=== PATIENT | female | born 1960 | race Caucasian/White ===

== ENCOUNTER 2017-09-20 12:07 | Emergency (ER) | payer OTHER ==
[2017-09-20] MEDS ORDERED: ONDANSETRON 4 MG/2 ML VIAL IVP STA (13:24)
[2017-09-20] MEDS ORDERED: SODIUM CHLORIDE 0.9% 1,000 ML IV ONE (13:24)
--- NOTE | 2017-09-20 13:29 | ED Physician Documentation ---
History of Present Illness - Stated complaint Stated Complaint: GLF/HEAD INJ - Chief complaint Chief Complaint: Trauma Hd/Nk - History obtained from History obtained from: Patient, Family - History of Present Illness Timing: Last night Pain level max: 5 Pain level now: 4 Improved by: rest Worsened by: nothing - Additonal information Additional information: Patient is a 57-year-old female who drank approximately 4 glasses of wine last night before bed, woke up at 2 AM to go to the bathroom, felt lightheaded and dizzy when sitting up off the toilet, passed out and her found her unconscious on the floor. She was unconscious for approximately 1 minute. No seizure activity. Today she has had vomiting and headache. She is also complaining of tailbone pain. Worse with walking. Better with rest. States that that is normally more wine than she drinks in one night. Review of Systems Ten Systems: 10 systems reviewed and negative Constitutional: denies: Fever, Chills Ears: denies: Ear pain Nose: denies: Rhinorrhea / runny nose, Congestion Throat: denies: Sore throat Cardiac: denies: Chest pain / pressure Respiratory: denies: Cough GI: denies: Nausea, Vomiting, Diarrhea Skin: denies: Rash Musculoskeletal: denies: Neck pain, Back pain Neurologic: denies: Headache PD PAST MEDICAL HISTORY - Past Medical History Past Medical History: Yes Cardiovascular: Hypertension Musculoskeletal: Other (R knee problems) - Present Medications Home Medications: Ambulatory Orders Medication Instructions Recorded Confirmed Doxycycline Monohydrate [Oracea] 09/20/17 Ondansetron Odt [Zofran] 4 mg TL Q6H PRN #10 tablet 09/20/17 Spironolactone 09/20/17 Valacyclovir HCl [Valtrex] 500 09/20/17 - Allergies Allergies/Adverse Reactions: Allergies Allergy/AdvReac Type Severity Reaction Status Date / Time Sulfa (Sulfonamide AdvReac Nausea Verified 09/20/17 12:25 Antibiotics) - Living Situation Living Situation: reports: With family Living Arrangement: reports: At home - Social History Does the pt smoke?: No Does the pt drink ETOH?: Yes Does the pt have substance abuse?: No - Family History Family history: reports: Non contributory PD ED PE NORMAL - Vitals Vital signs reviewed: Yes - General General: Alert and oriented X 3, No acute distress, Well developed/nourished - HEENT HEENT: PERRL, Ears normal, Moist mucous membranes, Pharynx benign, Other (mild occipital tenderness, no scalp hematoma) - Neck Neck: Supple, no meningeal sign, No bony TTP, Other (FROM without pain) - Cardiac Cardiac: RRR, Strong equal pulses - Respiratory Respiratory: No respiratory distress, Clear bilaterally - Abdomen Abdomen: Soft, Non tender, Non distended - Back Back: No spinal TTP, Other (mild TTP over sacrum and coccyx) - Derm Derm: Warm and dry - Extremities Extremities: No edema, No calf tenderness / cord - Neuro Neuro: Alert and oriented X 3, freelance operator 2-12 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, No motor deficit, No sensory deficit, Normal speech Eye Opening: Spontaneous Motor: Obeys Commands Verbal: Oriented GCS Score: 15 - Psych Psych: Normal mood, Normal affect Results - Vitals Vitals: Vital Signs - 24 hr 09/20/17 09/20/17 12:20 14:30 Temperature 36.5 C Heart Rate 71 70 Respiratory 18 15 Rate Blood Pressure 126/81 H 117/81 H O2 Saturation 98 99 Oxygen O2 Source Room air - EKG (time done) 1232 Rate: Rate (enter#) (70) Rhythm: NSR [place]: Normal Intervals: Normal [place] QRS: Normal Ischemia: Normal ST segments - Labs Labs: Laboratory Tests 09/20/17 09/20/17 09/20/17 14:00 14:00 14:00 WBC 11.7 H RBC 4.74 Hgb 14.1 Hct 40.3 MCV 84.8 MCH 29.7 MCHC 34.9 RDW 13.4 Plt Count 279 MPV 7.4 L Neut # 10.3 H Lymph # 0.7 L [place] # 0.6 Eos # 0.0 Baso # 0.1 Absolute Nucleated RBC 0.00 Nucleated RBC % 0.0 Sodium 137 Potassium 4.3 Chloride 98 L Carbon Dioxide 27 Anion Gap 12.0 BUN 14 Creatinine 0.7 Estimated GFR (MDRD) 86 L Glucose 141 H Calcium 9.4 Total Bilirubin 0.6 AST 23 ALT 22 Alkaline Phosphatase 59 Troponin I < 0.04 Total Protein 7.0 Albumin 4.6 Globulin 2.4 Albumin/Globulin Ratio 1.9 Lipase 23 Ethyl Alcohol < 5.0 - Rads (name of study) head CT Radiology: Prelim report reviewed, EMP read contemporaneously, See rad report ( normal) sacrum xray Radiology: Prelim report reviewed, EMP read contemporaneously, See rad report ( normal) PD MEDICAL DECISION MAKING - ED course Complexity details: reviewed results, re-evaluated patient, considered differential (No ST elevation [place], no aortic dissection, no PE, no tension pneumothorax, no aortic aneurysm, No evidence of arrhythmia, no evidence of intracranial hemorrhage or skull fracture), d/w patient, d/w family ED course: Patient is a 57-year-old female who had a syncopal episode while getting off the toilet in the middle night after drinking more alcohol than usual. No acute findings on telemetry, EKG, head CT laboratory testing or sacral x-ray today. Ambulating well. Received IV fluids and no longer feels lightheaded or dizzy with standing. Likely vasovagal syncope. Will continue supportive care and follow-up with her doctor. She is still having mild nausea, therefore will prescribe Zofran for her. Patient counseled regarding signs and symptoms for which I believe and urgent re-evaluation would be necessary. Patient with good understanding of and agreement to plan and is comfortable going home at this time This document was made in part using voice recognition software. While efforts are made to proofread this document, sound alike and grammatical errors may occur. 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 Return if you worsen. Your testing is normal today. Drink plenty of fluids at home Discharge Date/Time: 09/20/17 14:56
[2017-09-20 14:06] LABS: BASOPHILS # (AUTO) 0.1 10^3/uL (0.0-0.1); BASOPHILS % (AUTO) 0.7 %; EOSINOPHILS % (AUTO) 0.1 %; HGB - HEMOGLOBIN 14.1 g/dL (12.0-16.0); LYMPHOCYTES # (AUTO) 0.7 10^3/uL (1.5-3.5); LYMPHOCYTES % (AUTO) 6.1 %; MEAN CORPUSCULAR HEMOGLOBIN 29.7 pg (27.0-31.0); MEAN CORPUSCULAR HGB CONC 34.9 g/dL (32.0-36.0); MEAN CORPUSCULAR VOLUME 84.8 fL (81.0-99.0); MEAN PLATELET VOLUME 7.4 fL (7.9-10.8); MONOCYTES # (AUTO) 0.6 10^3/uL (0.0-1.0); MONOCYTES % (AUTO) 4.9 %; NEUTROPHILS # (AUTO) 10.3 10^3/uL (1.5-6.6); NEUTROPHILS % (AUTO) 88.2 %; PLT - PLATELET COUNT 279 10^3/uL (130-450); RED BLOOD COUNT 4.74 10^6/uL (4.20-5.40); RED CELL DISTRIBUTION WIDTH 13.4 % (12.0-15.0); WHITE BLOOD COUNT 11.7 x10^3/uL (4.8-10.8)
[2017-09-20 14:15] LABS: ALBUMIN 4.6 g/dL (3.2-5.5); ALBUMIN/GLOBULIN RATIO 1.9 (1.0-2.2); ALKALINE PHOSPHATASE 59 IU/L (42-121); ALT ALANINE AMINOTRANSFERASE 22 IU/L (10-60); AST ASPARTATE AMINOTRANSFERASE 23 IU/L (10-42); BILIRUBIN,TOTAL 0.6 mg/dL (0.2-1.0); BUN - BLOOD UREA NITROGEN 14 mg/dL (6-20); CALCIUM 9.4 mg/dL (8.5-10.3); CARBON DIOXIDE - CO2 27 mmol/L (21-32); CHLORIDE 98 mmol/L (101-111); CREATININE 0.7 mg/dL (0.4-1.0); GFR - MDRD 86 (>89); GLUCOSE 141 mg/dL (70-100); LIPASE 23 U/L (22-51); SODIUM 137 mmol/L (135-145)
--- NOTE | 2017-09-20 14:19 | CT Report ---
EXAM: CT HEAD EXAM DATE: 09/20/2017 02:03 PM. CLINICAL HISTORY: Syncope, head injury. COMPARISON: None. TECHNIQUE: Multiaxial CT images were obtained from the foramen magnum to the vertex. Reformats: Coron al. IV contrast: None. In accordance with CT protocol optimization, one or more of the following dose reduction techniques w ere utilized for this exam: automated exposure control, adjustment of mA and/or KV based on patient s ize, or use of iterative reconstructive technique. FINDINGS: Parenchyma: No intraparenchymal hemorrhage. No evidence of mass, midline shift, or CT findings of inf arction. [place]field-white differentiation is distinct. Extraaxial Spaces: Normal for age. No subdural or epidural collections identified. Ventricles: Normal in size and position. Sinuses and Orbits: Imaged paranasal sinuses, orbits, and mastoids show no significant abnormality. Bones: No evidence of fracture or calvarial defect. Other: None. IMPRESSION: Normal head CT. [facility] Referring Provider Line: [phone] SITE ID: [id number]
--- NOTE | 2017-09-20 14:19 | CT Preliminary Report ---
Exam: CT HEAD W/O IMPRESSION: Normal head CT. [facility] SITE ID: [id number]
--- NOTE | 2017-09-20 14:29 | XRAY Report ---
EXAM: SACRUM AND COCCYX RADIOGRAPHY EXAM DATE: 09/20/2017 02:12 PM. HISTORY: Syncope, coccyx pain. COMPARISONS: None. TECHNIQUE: 3 views. FINDINGS: Alignment: Normal. The sacrum and coccyx are normally aligned. Bones: Normal. No fracture or bone lesion. Joints: Normal. The sacroiliac joints and visualized hips are within normal limits. Soft Tissues: Unremarkable. IMPRESSION: Normal sacrum and coccyx radiography. [facility] Referring Provider Line: [phone] SITE ID: [id number]
[2017-09-20 14:32] VITALS: BP 117/81
== END 2017-09-20 14:56 | disposition home or self-care (01) ==
LOC: ED 12:07
DX: R55 Syncope and collapse (principal); R11.10 Vomiting, unspecified; R51 Headache; W18.39XA Other fall on same level, initial encounter; Y92.012 Bathroom of single-family (private) house as the place of occurrence of the external cause; I10 Essential (primary) hypertension
CPT/HCPCS: 36415; 70450; 72220; 80053; 80320; 83690; 84484; 85025; 93005; 96361; 96374; 99283; 99284

== ENCOUNTER 2017-09-24 20:50 | Emergency (ER) | payer OTHER ==
[2017-09-24] MEDS ORDERED: predniSONE 20 MG TABLET PO STA (21:17)
[2017-09-24] MEDS ORDERED: PSEUDOEPHEDRINE 30 MG TABLET PO STA (21:19)
--- NOTE | 2017-09-24 21:56 | CT Report ---
EXAM: CT HEAD EXAM DATE: 09/24/2017 09:33 PM. CLINICAL HISTORY: Trauma. Hearing loss. COMPARISON: 09/20/2017. TECHNIQUE: Multiaxial CT images were obtained from the foramen magnum to the vertex. Reformats: Coron al. IV contrast: None. In accordance with CT protocol optimization, one or more of the following dose reduction techniques w ere utilized for this exam: automated exposure control, adjustment of mA and/or KV based on patient s ize, or use of iterative reconstructive technique. FINDINGS: Parenchyma: No intraparenchymal hemorrhage. No evidence of mass, midline shift, or CT findings of inf arction. Mansfield-white differentiation is distinct. Extraaxial Spaces: Normal for age. No subdural or epidural collections identified. Ventricles: Normal in size and position. Sinuses and Orbits: Imaged paranasal sinuses, orbits, and mastoids show no significant abnormality. Bones: Nondisplaced midline frontal skull fracture. Other: None. IMPRESSION: 1. No intracranial abnormality. 2. Nondisplaced midline occipital skull fracture noted. [facility] Referring Provider Line: [phone] SITE ID: [id number]
--- NOTE | 2017-09-24 21:57 | ED Physician Documentation ---
PD HPI HEENT - Stated complaint Stated Complaint: LOSS OF HEARING - Chief complaint Chief Complaint: Heent - History obtained from History obtained from: Patient - History of Present Illness Timing - onset: Today Timing - details: Abrupt onset, Still present Location: Right ear Associated symptoms: Congestion Similar symptoms before: Has not had sx before Recently seen: Clinic, Emergency Dept - Additional information Additional information: Patient is a 57 year old female with a history of tinnitus and recent head trauma who is presenting to the emergency department for sudden hearing loss and ringing. Patient had been seen for a concussion about a week ago and has had persistent headaches. Patient saw her doctor today and was given a referral for a neurologist. Patient states that [place] in [place] and ear loss. Patient denies any change in vision or any other deficits. Review of Systems Constitutional: denies: Fever, Chills Eyes: denies: Loss of vision, Decreased vision, Photophobia Ears: reports: Loss of hearing, Tinnitus/ringing. 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 - Present Medications Home Medications: Ambulatory Orders Medication Instructions Recorded Confirmed Doxycycline Monohydrate [Oracea] 09/20/17 Ondansetron Odt [Zofran] 4 mg TL Q6H PRN #10 tablet 09/20/17 Spironolactone 09/20/17 Valacyclovir HCl [Valtrex] 500 09/20/17 Methylprednisolone [Medrol] 4 mg PO DAILY #1 tab.ds.pk 09/24/17 - Allergies Allergies/Adverse Reactions: Allergies Allergy/AdvReac Type Severity Reaction Status Date / Time Sulfa (Sulfonamide AdvReac Nausea Verified 09/24/17 20:58 Antibiotics) - Social History Does the pt smoke?: No Smoking Status: Never smoker Does the pt drink ETOH?: Yes Does the pt have substance abuse?: No - Immunizations Immunizations are current?: Yes PD ED PE NORMAL - Vitals Vital signs reviewed: Yes - General General: Alert and oriented X 3, Well developed/nourished - HEENT HEENT: Atraumatic, PERRL, EOMI, Ears normal, Moist mucous membranes, Pharynx benign - Neck Neck: Supple, no meningeal sign - Cardiac Cardiac: RRR, No murmur - Respiratory Respiratory: No respiratory distress, Clear bilaterally - Abdomen Abdomen: Soft, Non tender, Non distended - Derm Derm: Normal color, Warm and dry, No rash - Extremities Extremities: No deformity, No edema - Neuro Neuro: Alert and oriented X 3, tailor men's ready to wear 2-12 intact, No motor deficit, No sensory deficit, Normal speech Eye Opening: Spontaneous Motor: Obeys Commands Verbal: Oriented GCS Score: 15 PD ED PE EXPANDED - General General: Alert, Anxious Results - Vitals Vitals: Vital Signs - 24 hr 09/24/17 09/24/17 20:52 22:20 Temperature 36.6 C Heart Rate 86 75 Respiratory 16 14 Rate Blood Pressure 169/90 H 147/99 H O2 Saturation 98 99 Oxygen O2 Source Room air - Rads (name of study) ct head Radiology: Final report received (non dislplaced occipital skull fracture) PD MEDICAL DECISION MAKING - ED course Complexity details: reviewed old records, reviewed results, re-evaluated patient , considered differential, d/w patient, d/w family ED course: Patient was seen and examined at bedside. Patient was anxious but had no apparent neurological deficits. due to the recent trauma imaging was ordered. patient was treated with prednisone 60mg and pseudophed. When patient returned from imaging the results were reviewed. the film was read as non displaced occipital skull fracture. it was unchanged from the previous film which was read as negative. It would not cause hearing loss either way. Patient stated that she did not want high dose steroids so a dose pack was prescribed. Patient stated that she would follow up with her doctor to schedule an MRI. patient was already on an antiviral. patient required no further work up and was stable for discharge with outpatient follow up. Departure - Departure Disposition: 01 Home, Self Care Clinical Impression: Sudden-onset sensorineural hearing loss Condition: Good Instructions: Hearing Loss Follow-Up: Haily Coffman MD [Primary Care Provider] - Prescriptions: Methylprednisolone [Medrol] 4 mg PO DAILY #1 tab.ds.pk Comments: Your diagnostics today showed possibly a non displaced skull fracture but this would not have an impact on your hearing. There might be edema that is causing your symptoms and you would need an MRI for further evaluation. You should follow up with your doctor tomorrow and your neurology referral for further imaging. You should start the course of steroids. You may return to the emergency department at any time for new, worsening or uncontrollable symptoms.
[2017-09-24 22:20] VITALS: BP 147/99
== END 2017-09-24 22:20 | disposition home or self-care (01) ==
LOC: ED 20:50
DX: H90.5 Unspecified sensorineural hearing loss (principal); I10 Essential (primary) hypertension
CPT/HCPCS: 70450; 99283; 99284; A9270; J7512

== ENCOUNTER 2021-12-22 08:15 | Emergency (ER) | payer OTHER ==
[2021-12-22 08:52] LABS: BASOPHILS % (AUTO) 0.4 %; EOSINOPHILS % (AUTO) 0.3 %; HGB - HEMOGLOBIN 13.9 g/dL (12.0-16.0); LYMPHOCYTES # (AUTO) 0.9 10^3/uL (1.5-3.5); LYMPHOCYTES % (AUTO) 10.1 %; MEAN CORPUSCULAR HGB CONC 33.9 g/dL (32.0-36.0); MEAN CORPUSCULAR VOLUME 88.6 fL (81.0-99.0); MEAN PLATELET VOLUME 8.9 fL (7.9-10.8); MONOCYTES # (AUTO) 0.9 10^3/uL (0.0-1.0); MONOCYTES % (AUTO) 9.5 %; NEUTROPHILS # (AUTO) 7.3 10^3/uL (1.5-6.6); NEUTROPHILS % (AUTO) 79.5 %; PLT - PLATELET COUNT 253 10^3/uL (130-450); RED BLOOD COUNT 4.63 10^6/uL (4.20-5.40); RED CELL DISTRIBUTION WIDTH 12.5 % (12.0-15.0); WHITE BLOOD COUNT 9.2 x10^3/uL (4.8-10.8)
--- NOTE | 2021-12-22 09:00 | ED Physician Documentation ---
PD HPI URI - Stated complaint Stated Complaint: DIZZY, CHEST PX, CONGESTED - Chief complaint Chief Complaint: Resp - History obtained from History obtained from: Patient - History of Present Illness Timing - onset: How many days ago (5-6 days of some aches, congestion, and malaise. Home test negative for COVId. Has increased cough, dyspnea, feverish with positive COVID test 3 days ago. Talked with PMD and got Rx for Albuterol, and Tessalon. Coughing with MDI use. Not improved with Tessalon.) Timing duration: Days Timing details: Gradual onset, Still present Associated symptoms: Fever, Chills, Nasal congestion, Sore throat, Swollen nodes, Dry cough. No: Ear pain, NVD Similar symptoms before: Diagnosis Review of Systems Constitutional: reports: Fever, Chills, Myalgias Nose: reports: Rhinorrhea / runny nose, Congestion Throat: reports: Sore throat (from coughing) Cardiac: reports: Chest pain / pressure (tight feeling). denies: Palpitations Respiratory: reports: Dyspnea, Cough, Wheezing GI: reports: Nausea. 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 - Present Medications Home Medications: Ambulatory Orders Medication Instructions Recorded Confirmed Valacyclovir HCl [Valtrex] 500 mg PO DAILY 09/20/17 12/22/21 Alendronate Sodium 35 mg PO DAILY 12/22/21 12/22/21 - Allergies Allergies/Adverse Reactions: Allergies Allergy/AdvReac Type Severity Reaction Status Date / Time Sulfa (Sulfonamide AdvReac Nausea Verified 12/22/21 08:29 Antibiotics) - Social History Does the pt smoke?: No Smoking Status: Never smoker Does the pt drink ETOH?: Yes Does the pt have substance abuse?: No - Immunizations Immunizations are current?: Yes PD ED PE NORMAL - Vitals Vital signs reviewed: Yes - General General: Alert and oriented X 3, No acute distress, Well developed/nourished - HEENT HEENT: Moist mucous membranes, Pharynx benign - Neck Neck: Supple, no meningeal sign, No adenopathy - Cardiac Cardiac: RRR, No murmur - Respiratory Respiratory: Clear bilaterally - Abdomen Abdomen: Soft, Non tender - Back Back: No CVA TTP - Derm Derm: Normal color, Warm and dry - Extremities Extremities: Normal ROM s pain, No edema, No calf tenderness / cord - Neuro Neuro: Alert and oriented X 3, No motor deficit, Normal speech Results - Vitals Vitals: Vital Signs - 24 hr 12/22/21 12/22/21 12/22/21 08:30 10:32 10:44 Temperature 37.1 C Heart Rate 96 89 80 Respiratory 20 13 16 Rate Blood Pressure 166/101 H 150/98 H O2 Saturation 100 100 Oxygen O2 Source Room air - EKG (time done) 08:31 Rate: Rate (enter#) (88) Rhythm: NSR [place]: Normal Intervals: Normal [place] QRS: Normal Ischemia: Normal ST segments. No: ST elevation c/w ischemia, ST depression - Labs Labs: Laboratory Tests 12/22/21 12/22/21 12/22/21 08:45 08:45 08:45 WBC 9.2 RBC 4.63 Hgb 13.9 Hct 41.0 MCV 88.6 MCH 30.0 MCHC 33.9 RDW 12.5 Plt Count 253 MPV 8.9 Neut # (Auto) 7.3 H Lymph # (Auto) 0.9 L [place] # (Auto) 0.9 Eos # (Auto) 0.0 Baso # (Auto) 0.0 Absolute Nucleated RBC 0.00 Nucleated RBC % 0.0 Sodium 136 Potassium 4.2 Chloride 97 L Carbon Dioxide 28 Anion Gap 11.0 BUN 6 Creatinine 0.6 Estimated GFR (MDRD) 101 Glucose 109 H Calcium 9.0 Total Bilirubin 0.7 AST 19 ALT 21 Alkaline Phosphatase 51 Troponin I High Sens 3.8 Total Protein 7.6 Albumin 4.0 Globulin 3.6 Albumin/Globulin Ratio 1.1 Lipase 28 - Rads (name of study) chest xray Radiology: Prelim report reviewed (clear lungs.), See rad report PD MEDICAL DECISION MAKING - ED course Complexity details: considered differential (tested positive for COVID 3 days ago, with some malaise and congestion for 5-6 days but was negative tests at that time. Got ALbuterol MDI from PMD but coughs with use. Tessalon without improvement. Can give spacer for her MDI, and also Paxlovid to help reduce severity of illness. ), d/w patient, d/w family (spouse), d/w moving consultant (I talked with Pharmacist and patient not having contraindication for Paxlovid. Indication is quickly worsening dyspnea and age 61. ) Departure - Departure Disposition: 01 Home, Self Care Clinical Impression: COVID-19 Dyspnea Qualifiers: Dyspnea type: shortness of breath Qualified Code(s): R06.02 - Shortness of breath Condition: Stable Record reviewed to determine appropriate education?: Yes Comments: Your chest x-ray is clear without any signs of pneumonia. Your elevated hemidiaphragm is stable. Your EKG is good and no signs of heart failure or heart attack. At this point continue with your albuterol inhaler 2 to 3 puffs 4 times a day for the next several days to week. Use the spacer to help improve delivery. Tylenol if needed for fevers or pains. Add the paxlovid for 5 days as directed on the package. Follow-up with your primary care if not improving well over the next several days or so. Return if worse. Discharge Date/Time: 12/22/21 11:07
[2021-12-22 09:05] LABS: ALBUMIN/GLOBULIN RATIO 1.1 (1.0-2.2); BILIRUBIN,TOTAL 0.7 mg/dL (0.2-1.0); CREATININE 0.6 mg/dL (0.4-1.0); POTASSIUM 4.2 mmol/L (3.5-5.0); TOTAL PROTEIN 7.6 g/dL (6.7-8.2)
--- NOTE | 2021-12-22 09:40 | XRAY Report ---
PROCEDURE: Chest 1 View X-Ray INDICATIONS: Chest pain TECHNIQUE: One view of the chest was acquired. COMPARISON: 09/29/2014 FINDINGS: Surgical changes and devices: None. Lungs and pleura: No pleural effusions or pneumothorax. Lungs are clear. There is elevation of the left hemidiaphragm, as before. Mediastinum: Mediastinal contours appear normal. Heart size is normal. Bones and chest wall: No suspicious bony lesions. Mild dextroconvex scoliotic curvature is seen. Ov erlying soft tissues appear unremarkable. IMPRESSION: Clear lungs. Stable elevation of the left hemidiaphragm. Reviewed by: Israel Ellis MD on 12/22/2021 8:39 AM [facility] Approved by: Israel Ellis MD on 12/22/2021 8:39 AM [facility] Station ID: [id number]
[2021-12-22] MEDS ORDERED: ALBUTEROL 1 PUFF INH STA (09:41)
[2021-12-22] MEDS ORDERED: NIRMATRELVIR/RITONAVIR PREPACK PO STA (10:29)
[2021-12-22 10:34] VITALS: BP 150/98
== END 2021-12-22 11:07 | disposition home or self-care (01) ==
LOC: ED 08:15
DX: U07.1 COVID-19 (principal); I10 Essential (primary) hypertension
CPT/HCPCS: 36415; 71045; 80053; 83690; 84484; 85025; 93005; 94640; 94664; 99284; J3490

== ENCOUNTER 2023-07-30 08:00 | Outpatient (CLI) | payer OTHER ==
--- NOTE | 2023-07-30 20:11 | XRAY Report ---
PROCEDURE: Chest 2 View X-Ray INDICATIONS: ACUTE BRONCHITIS TECHNIQUE: 2 views of the chest were obtained. COMPARISON: 12/22/2021 FINDINGS: Surgical changes and devices: None. Lungs and pleura: No pleural effusions or pneumothorax. Lungs are clear. Elevated left hemidiaphr agm Mediastinum: Mediastinal contours appear normal. Heart size is normal. Bones and chest wall: No suspicious bony lesions. Overlying soft tissues appear unremarkable. IMPRESSION: Persistently elevated left hemidiaphragm no acute cardiopulmonary findings Reviewed by: Scottie Emerson MD on 07/30/2023 7:10 PM [facility] Approved by: Scottie Emerson MD on 07/30/2023 7:10 PM [facility] Station ID: [id number]
== END 2023-07-30 23:59 | disposition home or self-care (01) ==
LOC: DI.S 08:00
PROVIDERS: ATTEND Physician Assistant
DX: J20.9 Acute bronchitis, unspecified (principal)

== ENCOUNTER 2024-05-10 13:00 | Outpatient (CLI) | payer MEDICARE, OTHER ==
[2024-05-10 13:26] LABS: BASOPHILS # (AUTO) 0.1 10^3/uL (0.0-0.1); BASOPHILS % (AUTO) 1.6 %; EOSINOPHILS # (AUTO) 0.1 10^3/uL (0.0-0.7); HCT - HEMATOCRIT 42.9 % (37.0-47.0); HGB - HEMOGLOBIN 14.1 g/dL (12.0-16.0); LYMPHOCYTES # (AUTO) 1.4 10^3/uL (1.5-3.5); LYMPHOCYTES % (AUTO) 24.6 %; MEAN CORPUSCULAR HEMOGLOBIN 29.8 pg (27.0-31.0); MEAN CORPUSCULAR HGB CONC 32.9 g/dL (32.0-36.0); MEAN CORPUSCULAR VOLUME 90.7 fL (81.0-99.0); MEAN PLATELET VOLUME 9.2 fL (7.9-10.8); MONOCYTES # (AUTO) 0.3 10^3/uL (0.0-1.0); NEUTROPHILS # (AUTO) 3.7 10^3/uL (1.5-6.6); NEUTROPHILS % (AUTO) 65.6 %; PLT - PLATELET COUNT 330 10^3/uL (130-450); RED BLOOD COUNT 4.73 10^6/uL (4.20-5.40); RED CELL DISTRIBUTION WIDTH 13.2 % (12.0-15.0); WHITE BLOOD COUNT 5.6 x10^3/uL (4.8-10.8)
[2024-05-10 13:27] LABS: BILIRUBIN,URINE NEGATIVE (NEGATIVE); CLARITY,URINE CLEAR (CLEAR); GLUCOSE, URINE (UA) NEGATIVE (NEGATIVE); KETONES,URINE (UA) NEGATIVE (NEGATIVE); LEUKOCYTE ESTERASE, URINE TRACE (NEGATIVE); NITRITE,URINE NEGATIVE (NEGATIVE); OCCULT BLOOD,URINE SMALL (NEGATIVE); PH,URINE 7.5 PH (5.0-7.5); PROTEIN,URINE NEGATIVE (NEGATIVE); UROBILINOGEN,URINE 0.2 (NORMAL) E.U./dL (NORMAL)
[2024-05-10 13:51] LABS: ALBUMIN 4.4 g/dL (3.2-5.5); ALBUMIN/GLOBULIN RATIO 1.8 (1.0-2.2); ALKALINE PHOSPHATASE 51 IU/L (42-121); ALT ALANINE AMINOTRANSFERASE 17 IU/L (10-60); AST ASPARTATE AMINOTRANSFERASE 16 IU/L (10-42); BILIRUBIN,TOTAL 0.5 mg/dL (0.2-1.0); BUN - BLOOD UREA NITROGEN 10 mg/dL (6-20); CALCIUM 9.5 mg/dL (8.5-10.3); CARBON DIOXIDE - CO2 33 mmol/L (21-32); CHLORIDE 101 mmol/L (101-111); CREATININE 0.7 mg/dL (0.6-1.3); CRP - C-REACTIVE PROTEIN < 0.5 mg/dL (<0.5); GFR - MDRD 84 (>89); GLUCOSE 138 mg/dL (74-104); POTASSIUM 4.2 mmol/L (3.5-4.5); SODIUM 138 mmol/L (135-145); TOTAL PROTEIN 6.9 g/dL (6.4-8.9)
[2024-05-10 13:55] LABS: BACTERIA,URINE Rare /HPF (None Seen); RBC,URINE 0-5 /HPF (0-5); SQUAMOUS EPITHELIAL CELL,UR RARE Squamous (<= Few)
== END 2024-05-10 13:01 | disposition home or self-care (01) ==
LOC: LAB 13:00
PROVIDERS: ATTEND Registered Nurse
DX: R10.9 Unspecified abdominal pain (principal)
CPT/HCPCS: 36415; 80053; 81001; 85025; 86140; 87086